=== PATIENT | male | born 1950 | race Caucasian/White ===

== ENCOUNTER 2023-05-09 07:18 | Outpatient (RCR) | payer MEDICARE, OTHER, SELFPAY | END 2023-05-21 08:00 | disposition home or self-care (01) | LOC: PT 07:18 | PROVIDERS: PCP Orthopaedic Surgery; Visit Provider Orthopaedic Surgery | DX: M54.50 Low back pain, unspecified (principal) | CPT/HCPCS: 20561; 97110; 97140; 97161 ==

== ENCOUNTER 2023-05-22 09:35 | Outpatient (RCR) | payer MEDICARE, OTHER, SELFPAY | END 2023-06-14 15:55 | disposition home or self-care (01) | LOC: PT 09:35 | PROVIDERS: PCP Orthopaedic Surgery; Visit Provider Orthopaedic Surgery | DX: M54.50 Low back pain, unspecified (principal); M25.552 Pain in left hip; M25.551 Pain in right hip | CPT/HCPCS: 20561; 97110; 97140 ==